=== PATIENT | female | born 1990 | race Caucasian/White ===

== ENCOUNTER 2017-10-16 17:59 | Emergency (ER) | payer OTHER ==
[~2017-10-16] VITALS: Ht 160 cm; Wt 59.0 kg
[2017-10-16] MEDS ORDERED: Norco 5mg/325mg tab ORAL ONE (18:45)
[2017-10-16] MEDS ORDERED: IBUPROFEN600 MG ORAL (19:57)
[2017-10-16] MEDS ORDERED: TRAMADOL HCL50 MG ORAL (19:57)
[2017-10-16 20:05] VITALS: BP 130/70
--- NOTE | 2017-10-16 21:15 | Emergency Room Report ---
History of Present Illness General Chief Complaint: Lower Extremity Injury Source: Patient Present Illness HPI The patient is a 27-year-old female presenting for right foot pain which began today. She states that she was walking downstairs, tripped, and struck the foot on the ground. She denies any other injury. Pain is a 9/10 dull ache to the right foot and does not radiate. Worse with walking. She denies previous injury to the foot. She denies any numbness or tingling Allergies: Coded Allergies: No Known Allergies (Unverified , 10/16/17) Patient History Past Medical History: see triage record Pertinent Family History: none Now: No Reviewed Nursing Documentation: PMH: Agreed, PSxH: Agreed Nursing Documentation-PMH Past Medical History: No Stated History Review of Systems All Other Systems: negative except mentioned in HPI Physical Exam Vital Signs Date Time Temp Pulse Resp B/P (MAP) Pulse Ox O2 Delivery O2 Flow Rate FiO2 10/16/17 18:25 98.1 82 16 130/70 98 Room Air Sp02 EP Interpretation: reviewed, normal General Appearance: no apparent distress, alert, GCS 15, non-toxic Head: normocephalic, atraumatic Eyes: bilateral eye normal inspection, bilateral eye PERRL ENT: hearing grossly normal, normal pharynx, no angioedema, normal voice Musculoskeletal: back normal, gait/station normal, normal range of motion, no calf tenderness, decreased range of motion, swelling, tender - TTP over the R lateral mid foot Neurologic: alert, oriented x3, responsive, motor strength/tone normal, sensory intact, speech normal Psychiatric: judgement/insight normal, memory normal, mood/affect normal, no suicidal/homicidal ideation Skin: normal color, no rash, warm/dry, well hydrated Procedures Splinting Splinting : Consent: Verbal Location: R foot Hand-Made Type: plaster Splint: poserior short Pre-Proc Neuro Vasc Exam: normal Post-Proc Neuro Vasc Exam: normal Patient Tolerated: Well Complications: None Medical Decision Making PA Attestation Dr. Cadena is my supervising physician. Patient management was discussed with my supervising physician Diagnostic Impression: Primary Impression: Metatarsal fracture Qualified Codes: S92.351A - Displaced fracture of fifth metatarsal bone, right foot, initial encounter for closed fracture ER Course The patient is a 27-year-old female presenting for right foot pain Ddx considered include but not limited to sprain/strain, fracture, contusion Physical exam: No apparent distress Right foot: There is swelling and tenderness to palpation over the right lateral region mid foot. Full active range of motion of the ankle is intact. No ecchymosis. X-ray of the right foot and ankle show a fracture of the base of the fifth metatarsal Posterior short-leg splint is placed and the patient is given crutches. She is to followup with orthopedics as soon as possible. She understands and agrees. ER precautions are given Other X-Ray Diagnostic Results Other X-Ray Diagnostic Results #1: X-Ray ordered: R foot # of Views/Limited Vs Complete: 3 View Indication: Pain EP Interpretation: Yes PA Xray: Interpretation reviewed, by supervising MD, and agrees with findings. Interpretation: no dislocation, other - fracture of 5th MT Impression: Other - fracture Electronically Signed by: Sabas Burt PA-C Other X-Ray Diagnostic Results #2: X-Ray ordered: R ankle # of Views/Limited Vs Complete: 3 View Indication: Pain EP Interpretation: Yes PA Xray: Interpretation reviewed, by supervising MD, and agrees with findings. Interpretation: other - Fracture of 5th MT Impression: Other - fracture Electronically Signed by: Sabas Burt PA-C Last Vital Signs Date Time Temp Pulse Resp B/P (MAP) Pulse Ox O2 Delivery O2 Flow Rate FiO2 10/16/17 20:04 98.0 10/16/17 18:25 82 16 130/70 98 Room Air Status: improved Disposition: HOME, SELF-CARE Condition: Improved Scripts Tramadol Hcl* (ULTRAM*) 50 Mg Tablet 50 MG ORAL Q6H Y for For Pain, #15 TAB 0 Refills Prov: TERZIAN,SABAS P.A. 10/16/17 Ibuprofen* (MOTRIN*) 600 Mg Tablet 600 MG ORAL Q8H Y for For Pain, #30 TAB 0 Refills Prov: TERZIAN,SABAS P.A. 10/16/17 Patient Instructions: Metatarsal Fracture Additional Instructions: I discussed my findings with the patient. All questions and concerns have been answered. Treatment and medication compliance have been addressed. Please follow up with orthopedic doctor for further evaluation. You may need surgical fixation of this fracture. Return to ED if pain remains or worsens, numbness or tingling occurs, new rash is noticed, fever is noticed, or if needed for any reason. Patient verbalized understanding of discharge instructions. SABAS BURT Oct 16, 2017 21:15
--- NOTE | 2017-10-17 11:19 | Diagnostic Imaging Report ---
Indication: PAIN lateral side pain Technique: 3 views of the right ankle Comparison: none Findings: There is a displaced fracture of the fifth metatarsal. No acute ankle fractures. The ankle joint spaces are preserved. Impression: Positive for fifth metatarsal fracture This agrees with the preliminary interpretation provided by the emergency room physician
--- NOTE | 2017-10-17 11:25 | Diagnostic Imaging Report ---
Indication: PAIN Technique: 3 views right foot Comparison: none Findings: There is a fracture of the fifth metatarsal base. This is transverse, somewhat distracted, somewhat laterally displaced. There is hallux longus and metatarsus adductus. No other acute fractures area no dislocations. Joint spaces are preserved Impression: Positive for fifth metatarsal base fracture This agrees with the preliminary interpretation provided by the emergency room physician
== END 2017-10-16 20:25 | disposition home or self-care (01) ==
LOC: EMR 18:31
DX: S92.351A Displaced fracture of fifth metatarsal bone, right foot, initial encounter for closed fracture (principal); W10.9XXA Fall (on) (from) unspecified stairs and steps, initial encounter; Y92.009 Unspecified place in unspecified non-institutional (private) residence as the place of occurrence of the external cause
CPT/HCPCS: 29515; 99284